=== PATIENT | female | born 1940 | race Caucasian/White ===

== ENCOUNTER 2017-10-16 15:09 | Emergency (ER) | payer MEDICARE ==
[2016-09-15 12:07] VITALS: BMI 31.1
[~2017-10-16 15:09] MED LIST: ACETAMINOPHEN500 M1 PO; AMITRIPTYLINE H50 MG PO; CARDURA4 MG PO; COLACE100 MG PO; FLAGYL500 MG PO; HYDROCHLOROTH12.5 M1 PO; HYDROCODONE-APA1 TAB PO; LEVETIRACETAM PO; MULTI-DAY VITAM1 TAB PO; PRILOSEC20 MG PO; ROCEPHIN 2 GM/D52 G1 IV; TEGRETOL 200 M200 MG PO; TEGRETOL200 MG PO; TENORMIN25 MG; VITAMINE PO
[2017-10-16 16:05] LABS: BASOPHILS 0 % (0-2); EOSINOPHILS 1.1 % (0-7); HEMATOCRIT 34.5 % (36.0-48.0); HEMOGLOBIN 11.8 g/dL (12-16); IMMATURE GRANULOCYTES 0.2 % (0-5); MCHC 34.2 g/dL (31.0-37.0); MCV 87.8 fL (80.0-100.0); MEAN PLATELET VOLUME 8.5 fL (7.4-10.4); MONOCYTES 6.6 % (2-11); NEUTROPHILS 77.1 % (40-80); PLATELET COUNT 335 10x3/uL (130-400); RBC 3.93 10x6/uL (4.00-5.40); RDW 13.6 % (11.5-14.5); WBC 10.5 10x3/uL (4.8-10.8)
[2017-10-16 16:20] LABS: ALKALINE PHOSPHATASE 202 U/L (46-116); ALT (SGPT) 238 U/L (10-68); CALC OSMOLALITY 257 mosm/kg (275-300); CALCIUM 8.7 mg/dL (8.5-10.1); CARBON DIOXIDE 24.7 mmol/L (21.0-32.0); CHLORIDE - SERUM 91 mmol/L (98-107); CREATININE - SERUM 0.5 mg/dL (0.6-1.3); GLUCOSE 134 mg/dL (74-106); POTASSIUM - SERUM 3.8 mmol/L (3.5-5.1); PROTEIN - SERUM 7.4 g/dL (6.4-8.2); SODIUM 128 mmol/L (136-145); UREA NITROGEN 10 mg/dL (7-18); eGFR NON AFRICAN AMERICAN > 90 mL/min (90-120)
[2017-10-16 16:31] LABS: CHOL - HDL RATIO 4.4 ratio (2.3-4.1); CHOLESTEROL, TOTAL 240 mg/dL (0-200); CKMB 0.6 U/L (0.0-3.6); CREATINE KINASE 22 UL (21-215); HDL CHOLESTEROL 54 mg/dL (32-96); LDL CHOLESTEROL 113 mg/dL (0-100); LDL-HDL RATIO 2.1 ratio (1.5-3.5); TRIGLYCERIDE 366 mg/dL (30-200); TROPONIN-I < 0.017 ng/mL (0.000-0.060)
[2017-10-16 17:38] LABS: AMYLASE - SERUM 19 U/L (25-115); LIPASE 119 U/L (73-393)
== END 2017-10-16 19:06 | disposition home or self-care (01) ==
LOC: D.ER 15:09
PROVIDERS: Emergency Medicine
DX: R10.9 Unspecified abdominal pain (principal); I50.9 Heart failure, unspecified; I10 Essential (primary) hypertension

== ENCOUNTER 2019-09-22 16:41 | Emergency (ER) | payer MEDICARE ==
[~2019-09-22] VITALS: Ht 157.5 cm; Wt 81.8 kg
[2019-09-22 16:47] VITALS: Ht 157.5 cm; Wt 81.8 kg
[2019-09-22] MEDS ORDERED: TENORMIN25 MG PO (16:48)
[2019-09-22] MEDS ORDERED: TUMS X-STR300 MG PO (16:50)
[2019-09-22 17:36] LABS: BASOPHILS 0.2 % (0-2); EOSINOPHILS 5.3 % (0-7); HEMATOCRIT 37.1 % (36.0-48.0); HEMOGLOBIN 12.9 g/dL (12-16); IMMATURE GRANULOCYTES 0.3 % (0-5); LYMPHOCYTES 22.5 % (15-50); MCH 31.1 pg (26.0-34.0); MCHC 34.8 g/dL (31.0-37.0); MCV 89.4 fL (80.0-100.0); MEAN PLATELET VOLUME 8.2 fL (7.4-10.4); MONOCYTES 8.3 % (2-11); NEUTROPHILS 63.4 % (40-80); PLATELET COUNT 352 10x3/uL (130-400); RBC 4.15 10x6/uL (4.00-5.40); RDW 13.7 % (11.5-14.5); WBC 9.8 10x3/uL (4.8-10.8)
[2019-09-22 17:41] LABS: APPEARANCE HAZY (CLEAR); BILIRUBIN NEGATIVE (NEGATIVE); COLOR STRAW (YELLOW); GLUCOSE NEGATIVE (NEGATIVE); KETONE NEGATIVE (NEGATIVE); NITRITE POSITIVE (NEGATIVE); PROTEIN TRACE mg/dL (NEGATIVE); UROBILINOGEN NORMAL (NORMAL)
[2019-09-22 17:42] LABS: BACTERIA MANY /hpf (NEGATIVE); EPITHELIAL CELLS 0-5 /hpf (0-5); RED CELLS - URINE 0-5 /hpf (0-5); WHITE CELLS - URINE 25-50 /hpf (NEGATIVE)
[2019-09-22 18:01] LABS: CALC OSMOLALITY 262 mosm/kg (275-300); CALCIUM 8.6 mg/dL (8.5-10.1); CARBON DIOXIDE 27.5 mmol/L (21.0-32.0); CHLORIDE - SERUM 96 mmol/L (98-107); CREATININE - SERUM 0.4 mg/dL (0.6-1.3); GLUCOSE 103 mg/dL (74-106); POTASSIUM - SERUM 3.6 mmol/L (3.5-5.1); SODIUM 132 mmol/L (136-145); UREA NITROGEN 8 mg/dL (7-18); eGFR NON AFRICAN AMERICAN > 90 mL/min (90-120)
[2019-09-22] MEDS ORDERED: MACROBID100 MG PO (18:03)
[2019-09-22] MEDS ORDERED: KEFLEX500 MG PO (18:03)
[2019-09-22 18:07] LABS: ALKALINE PHOSPHATASE 130 U/L (46-116); ALT (SGPT) 19 U/L (10-68); BILIRUBIN - TOTAL 0.18 mg/dL (0.2-1.3); PROTEIN - SERUM 7.4 g/dL (6.4-8.2)
[2019-09-22 19:44] VITALS: BP 169/71
== END 2019-09-22 19:55 | disposition home or self-care (01) ==
LOC: D.ER 16:41
PROVIDERS: Family Medicine
DX: N39.0 Urinary tract infection, site not specified (principal); R30.0 Dysuria; G62.9 Polyneuropathy, unspecified